=== PATIENT | male | born 1980 | race Caucasian/White ===

== ENCOUNTER 2017-03-30 06:50 | Day surgery (SDC) | payer OTHER ==
[~2017-03-30] VITALS: Ht 190.5 cm; Wt 113.4 kg
[~2017-03-30 06:50] MED LIST: ADVIL PM CAPLE1 EACH PO; MOTRIN IB200 MG PO; THERAFLU FLU &1 EAC1 PO
--- NOTE | 2017-03-30 09:04 | NUR ---
03/30/17 0904 Nadege Coe REPORT FROM [facility].
[2017-03-30] MEDS ORDERED: NORCO 5-325 TA1 EACH PO (10:06)
--- NOTE | 2017-03-30 11:23 | NUR ---
LE 0986 PT RETURNED FROM PACU WIDE AWAKE C/O PAIN 3/10 IN ABD. DECLINED PAIN MED AT THIS TIME. 1015 UP TO BATHROOM WITH ONE PERSON ASSIST. VOIDED. BACK IN BED. EATING JELLO. 1030 C/O ABD PAIN 3/10 - 6/10 WITH MOVEMENT. TWO NORCO 5/325 GIVEN.
--- NOTE | 2017-03-31 09:22 | OR ---
[facility] [address], [place] [address] Signed DATE OF PROCEDURE: 03/30/17 PREOPERATIVE DIAGNOSIS Umbilical hernia (12 mm). POSTOPERATIVE DIAGNOSIS Umbilical hernia (12 mm). PROCEDURES Umbilical herniorrhaphy with intraabdominal Ventralex mesh (6.4 cm). ESTIMATED BLOOD LOSS None. INDICATIONS Vickey is a 36-year-old gentleman who came as a self referral for symptomatic umbilical hernia. He says he has had it for many years. 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 His work is physical and he also likes to exercise to stay in shape. He said the last 6 months he has noticed more swelling at the umbilicus. He has been having more pain. He had to give up his exercising due to the pain and he said he gained 20 pounds. Apparently, I helped his for surgery and so he decided to come to see me with respect to the above. In the office, he had an incarcerated tender umbilical hernia. I gave him a [employer] brochure on hernias. We looked at that together in detail. He understands the nature of an umbilical hernia. He understands the difference between the primary suture repair and a mesh repair. He also understands the expected intraop and course. There is risk of surgery including, but not limited to bleeding, infection, postop scarring, change in contour the skin, damage to bowel, infection of the mesh requireing removal, recurrent hernias and chronic pain. He had expressed understanding and wished to proceed. PROCEDURE NOTE Vickey was taken into our operating room and placed in the supine position under general endotracheal tube anesthesia. He was given preope rative antibiotics along with subcutaneous heparin. SCDs were utilized. He was then prepped and draped in the usual sterile fashion. We utilized our standard infraumbilical transverse incision and carried that down around the umbilical skin bluntly and with the cautery. We divided the hernia sac from the fascial defect with the help of cautery. The hernia sac was passed off the field. His fascial defect was about 12 mm or so in diameter. We therefore chose our 6.4 cm round Ventralex mesh. We placed that in the abdomen and brought it up flush against the posterior abdominal wall. The fascial defect was then closed transversely with a running #1 Prolene suture. Several passes of the suture went through the tab on the mesh to help hold it in place. The tab was then cut flush with the fascia and discarded. Local anesthetic was then injected into the operative field in the abdominal wall. The Electronically Signed By: KURT LEI MD 03/31/17 0922 PATIENT NAME: VICKEY LECHUGA OPERATIVE REPORT DATE OF : 82 PHYSICIAN: KURT LEI MD REPORT #: [id number] REPORT IS CONFIDENTIAL AND NOT TO BE RELEASED WITHOUT AUTHORIZATION [address] [address] Signed wound was irrigated and suctioned out until clear. The umbilical skin was held down to the midline fascia with an interrupted 2-0 PDS suture. The skin and dermis was then reapproximated with interrupted 3-0 Monocryl sutures. Dry gauze and tape was then applied. Vickey was then awakened from his anesthesia, extubated in the OR and taken to recovery room in stable condition. MD JOSEPH Levin/Toi / [id number] cc: Steffen Dacosta MD Electronically Signed By: KURT LEI MD 03/31/17 0922 PATIENT NAME: VICKEY LECHUGA OPERATIVE REPORT DATE OF : 82 PHYSICIAN: KURT LEI MD REPORT #: [id number] REPORT IS CONFIDENTIAL AND NOT TO BE RELEASED WITHOUT AUTHORIZATION
== END 2017-03-30 11:10 | disposition home or self-care (01) ==
LOC: DS 06:50
PROVIDERS: Colon & Rectal Surgery
PROC: 0WUF0JZ Supplement Abdominal Wall with Synthetic Substitute, Open Approach (ICD-10-PCS; principal; 2017-03-30 08:30)
DX: K42.9 Umbilical hernia without obstruction or gangrene (principal); I10 Essential (primary) hypertension; F41.9 Anxiety disorder, unspecified; Z90.89 Acquired absence of other organs; Z98.52 Vasectomy status; Z98.890 Other specified postprocedural states; Z88.5 Allergy status to narcotic agent
CPT/HCPCS: 00750; C1781; J0690; J1100; J1170; J1644; J1885; J2250; J2405; J3010; J7120